=== PATIENT | female | born 1965 | race Caucasian/White ===

== ENCOUNTER 2023-11-15 14:00 | Emergency (ER) | payer OTHER, SELFPAY ==
[2023-11-15 14:04] VITALS: BP 156/82; PULSE 99; RESP 14; TEMP 36.3; O2SAT 98
--- NOTE | 2023-11-15 14:24 | EDS_ITS ---
HPI History of Present Illness Chief Complaint: Laceration Informant: patient Narrative Narrative: Patient presents with laceration to the plantar surface of her left foot. She was walking on her treadmill with only socks on. When she went to step off the side she caught her foot and suffered a laceration to the plantar surface. Last tetanus shot was 9 years ago. [facility] Medical History (Updated 11/15/23 @ 15:[address] Alida Hawkins MD) Borderline diabetes Milka's thyroiditis PCOS (polycystic ovarian syndrome) Home Medications doxycycline monohydrate 100 mg capsule 100 mg PO BID #20 CAPSULES 11/15/23 [Rx Last Taken Unknown] Allergy/AdvReac Type Severity Reaction Status Date / Time cefaclor [From Ceclor] Allergy Hives Verified 11/15/23 14:04 hydromorphone [From Dilaudid] Allergy Other Verified 11/15/23 14:04 levofloxacin [From Levaquin] Allergy Anaphylaxis Verified 11/15/23 14:04 Sulfa (Sulfonamide Allergy Anaphylaxis Verified 11/15/23 14:04 Antibiotics) Social History Smoking Status: Never smoker ROS ROS ED Constitutional Constitutional ED: Denies chills or fever(s) Eyes Eyes: Denies discharge from eye(s) ENT ENT ED: Denies discharge from eye(s), rhinorrhea or sore throat Cardiovascular Cardiovascular: Denies chest pain Respiratory/Chest Respiratory/Chest: Denies cough or dyspnea Gastrointestinal Gastrointestinal: Reports nausea; Denies abdominal pain or vomiting Genitourinary Genitourinary ED: Denies dysuria Musculoskeletal Musculoskeletal: Reports extremity pain; Denies back pain Integumentary Reports other Details: Left foot laceration ; Denies Abrasions or rash Neurologic Neurologic: Denies headache(s), paresthesias or weakness Psychiatric Psychiatric: Reports anxiety; Denies depression Allergic/Immunologic Allergic/Immunologic ED: Denies lip swelling or urticaria EXAM Physical Exam Const Vital Signs: 11/15/23 14:04 Temperature 97.3 F L Temperature Source Temporal Pulse Rate 99 Respiratory Rate 14 Blood Pressure 156/82 H Blood Pressure Mean 106 Pulse Ox 98 Oxygen Delivery Method Room Air Positive well nourished and well developed General Appearance ED: well developed HEENT Reports moist mucous membranes Eyes PERRL Neck supple Chest Wall inspection of chest normal and palpation of chest normal Resp normal respiratory effort and clear to auscultation bilaterally Cardio regular rate and regular rhythm GI non-tender Palpation: soft Extremity Extremity Narrative: 6 cm laceration on the lateral aspect of the distal left foot. Bleeding well- controlled. Neuro oriented x3 Skin Skin Narrative: Foot laceration as noted above. MDM MDM MDM Narrative Medical decision making narrative: Tetanus update provided. Wound was anesthetized with 10 cc 1% lidocaine. Wound was thoroughly cleansed and irrigated. 8 simple interrupted sutures of 4-0 nylon are placed with good approximation. Antibiotic ointment placed and dressing applied. Patient will be treated with a course of doxycycline to help cover skin infection as she does have allergies to sulfa and cephalosporins. She wishes to follow-up with Dr. Miguel at [facility]. Return instructions provided. Discharge Plan Triage Chief Complaint: Laceration ED Provider: Alida Hawkins Dx/Rx/DC Orders Clinical Impression: Laceration of foot, left Instructions: ED Laceration, Foot: All Closures Prescriptions: New doxycycline monohydrate 100 mg capsule 100 mg PO BID Qty: 20 0RF Referrals: Shane Miguel DPM [Med Staff - Active Staff] - 10 Day for suture removal Disposition Disposition: Home, Self Care
[2023-11-15] MEDS: Lidocaine 1% (20 ml mdv) 20 ML Vial INFILT (14:46)
[2023-11-15 15:14] VITALS: BP 112/79; PULSE 74; RESP 14; TEMP 36.6; O2SAT 96
== END 2023-11-15 15:19 | disposition home or self-care (01) ==
LOC: ED 15:14
PROVIDERS: Emergency Provider Emergency Medicine; Visit Provider Emergency Medicine
DX: S91.312A Laceration without foreign body, left foot, initial encounter (principal); W23.0XXA Caught, crushed, jammed, or pinched between moving objects, initial encounter; Y93.A1 Activity, exercise machines primarily for cardiorespiratory conditioning; Z23 Encounter for immunization; Z88.2 Allergy status to sulfonamides
CPT/HCPCS: 12002; 90715; 99284